=== PATIENT | female | born 1945 | race Caucasian/White ===

== ENCOUNTER 2020-10-18 16:21 | Outpatient (CLI) | payer MEDICARE, SELFPAY | END 2020-10-18 16:22 | disposition home or self-care (01) | LOC: ANHCOVIDVC 16:21 | PROVIDERS: PCP Internal Medicine | DX: Z23 Encounter for immunization (principal) | CPT/HCPCS: 0001A; 91300 ==

== ENCOUNTER 2020-11-08 16:26 | Outpatient (CLI) | payer MEDICARE, SELFPAY | END 2020-11-08 16:27 | disposition home or self-care (01) | LOC: ANHCOVIDVC 16:27 | PROVIDERS: PCP Internal Medicine | DX: Z23 Encounter for immunization (principal) | CPT/HCPCS: 0002A; 91300 ==

== ENCOUNTER 2020-11-12 13:52 | Outpatient (CLI) | payer MEDICARE, OTHER, SELFPAY | END 2020-11-12 13:53 | disposition home or self-care (01) | LOC: ANHBWCAUD 13:54 | PROVIDERS: PCP Internal Medicine; Visit Provider Otolaryngology | DX: H65.22 Chronic serous otitis media, left ear (principal); H90.A32 Mixed conductive and sensorineural hearing loss, unilateral, left ear with restricted hearing on the contralateral side; H90.A21 Sensorineural hearing loss, unilateral, right ear, with restricted hearing on the contralateral side | CPT/HCPCS: 92557; 92567 ==